=== PATIENT | female | born 1960 | race Caucasian/White ===

== ENCOUNTER 2019-01-15 07:31 | Outpatient (CLI) | payer BC ==
[2019-01-15 08:05] LABS: BASOPHILS % 0.5 % (0.0-1.5); NEUTROPHILS # 6.8 # k/uL (1.4-7.7)
[2019-01-15 08:32] LABS: eGFR (Non-African) > 60
--- NOTE | 2019-01-15 11:15 | Diagnostic Imaging Report ---
DAVID SHEPARD ED [facility] [id number] [facility] [address] [place], [place]. [address] Report Submission Date: Jan 15, 2019 10:58:15 AM CDT Patient Study Name: SELWYN BACK Date: Jan 15, 2019 9:59:35 AM CDT Modality Type: CT\SR Gender: F Description: CT ABD PELVIS W/ CON : 62 Institution: [facility] Physician: DAVID SHEPARD ED Exam: CT abdomen pelvis with contrast. History: Umbilical hernia. Axial images through the abdomen and pelvis after IV infusion of 90 cc Omnipaque is submitted along with sagittal and coronal reformatted images. Calcified granuloma in the medial aspect of the left lower lung field is noted. No hamzah consolidation or effusions in the visualized lower lung green are seen. A small hiatal hernia is noted. No free intraperitoneal air is identified. The gallbladder is distended without stones. The liver, spleen and pancreas are normal attenuation and enhancement. The adrenal glands are normal configuration. The abdominal aorta is of normal caliber. No periaortic lymphadenopathy is identified. Multiple bilateral renal cysts are identified. The largest is seen in the lower pole of the left kidney measuring 2.8 cm. No hydronephrosis is identified. The urinary bladder is contracted. The small bowel is of normal caliber. Air and stool is seen throughout the large intestine. No inflammatory changes in the mesentery or ascites is identified. A small periumbilical hernia contains only fat. No bony abnormalities are identified. Impression: Old granulomatous disease. Small hiatal hernia. Bilateral renal cysts. No hydronephrosis. Nonspecific bowel gas pattern. No inflammatory changes in the mesentery or ascites is identified. Small periumbilical hernia contains only fat. Electronically signed on Jan 15, 2019 10:58:15 AM CDT by: Isai SHELL
== END 2019-01-15 07:33 ==
LOC: RAD 07:31
PROVIDERS: ATTEND Nurse Practitioner Family
DX: Z00.01 Encounter for general adult medical examination with abnormal findings (principal)
CPT/HCPCS: 36415; 74177; 80053; 85025

== ENCOUNTER 2019-01-24 06:29 | Day surgery (SDC) | payer OTHER ==
[2019-01-24] MEDS ORDERED: methylPREDNISolone SOD SUCC 125 MG/2 ML VIAL ONE ×3 (07:21→08:48)
[2019-01-24] MEDS ORDERED: LIDOCAINE HCL 1% PF 300MG/30ML VIAL ONE (08:48)
[2019-01-24] MEDS ORDERED: FAMOTIDINE 20 MG/2 ML VIAL IV ONE (08:48)
[2019-01-24] MEDS ORDERED: ROCURONIUM BROMIDE 10 MG/ML 5ML VIAL ONE (08:48)
[2019-01-24] MEDS ORDERED: ceFAZolin SODIUM 1 GM VIAL ONE (08:48)
[2019-01-24] MEDS ORDERED: SUGAMMADEX SODIUM 200 MG/2 ML VIAL IV ONE (08:48)
[2019-01-24] MEDS ORDERED: MIDAZOLAM HCL 2 MG/2 ML VIAL ONE (08:48)
[2019-01-24] MEDS ORDERED: ONDANSETRON HCL/PF 4 MG/ 2ML VIAL ONE (08:48)
[2019-01-24] MEDS ORDERED: LACTATED RINGERS 1,000 ML IV.SOLN IV ONE ×2 (08:48)
[2019-01-24] MEDS ORDERED: PROPOFOL 200 MG/20 ML VIAL IV ONE (08:48)
[2019-01-24] MEDS ORDERED: PHENYLEPHRINE HCL 10 MG/1 ML ONE (08:48)
[2019-01-24] MEDS ORDERED: DEXAMETHASONE SODIUM PHOSPHATE 10 MG/ML VIAL ONE (08:48)
[2019-01-24] MEDS ORDERED: LIDOCAINE HCL 2% PF 100MG/5ML VIAL IJ ONE (08:48)
[2019-01-24] MEDS ORDERED: BUPIV. HCL 0.25% (2.5MG/ML)/EPI. (1:200,000) PF 10 ML VIAL IM ONE (08:48)
[2019-01-24] MEDS ORDERED: SEVOFLURANE 250 ML LIQUID IH ONE (08:48)
[2019-01-24] MEDS ORDERED: KETOROLAC TROMETHAMINE 30 MG/1ML VIAL ONE (08:48)
[2019-01-24] MEDS ORDERED: GLYCOPYRROLATE 0.2 MG/1 ML 1 ML ONE (08:48)
[2019-01-24] MEDS ORDERED: HYDROcodone /APAP 5/325 1 EACH TABLET ONE (10:59)
--- NOTE | 2019-01-28 15:18 | Operative Note ---
PREOPERATIVE DIAGNOSIS: Ventral hernia. POSTOPERATIVE DIAGNOSIS: Ventral hernia. PROCEDURES PERFORMED: Laparoscopic repair of ventral hernia with mesh. SURGEON: Hardik Nunez M.D. INDICATIONS FOR PROCEDURE: Ms. Rodriguez is a 58-year-old female who presented with features of a bulge in the anterior abdomen near the umbilicus. She has a history of lower abdominal incisions in the past, and it appeared to be through the wall of the incision site. The patient was advised laparoscopic repair of same. DESCRIPTION OF PROCEDURE: After explaining to the patient in detail and informed consent was obtained, the patient was identified in the preoperative holding area. The patient was transferred to the operating room and was placed in supine position. Sequential compressive devices were placed for DVT prophylaxis. Preoperative antibiotics were given. After induction of anesthesia, the abdomen was prepped and draped in a sterile fashion. Through a left upper quadrant 1-cm incision, and using Optiview technique, the peritoneal cavity was entered and pneumoperitoneum was created. Thereafter, under direct vision, a 12-mm trocar was placed in the left flank and another 5-mm trocar was placed in the left lower quadrant. On initial inspection, the patient was noted to have a 3 cm ventral hernia with most of the omentum inside it. This was gently taken down. I then dissected off the sac using hook electrocautery and by blunt dissection. Once the sac was excised, I then approximated the hernial defect using #1 Ethibond suture and using a suture passer. Once this was completed, I then chose a 12-cm Symbotex mesh and a single 2-0 Ethibond suture was placed in the center of the mesh using 2-0 Ethibond suture. The mesh was then introduced into the abdominal cavity and the mesh was then anchored onto the anterior abdomen using the suture passer. The mesh was then tacked circumferentially using Securestrap at 1-cm intervals. Absolute hemostasis was ensured. The abdomen was then deflated, the incisions were closed with 4-0 Monocryl, Dermabond was applied. The patient was stable at the end of the procedure. The patient was awakened from anesthesia and was transferred to the recovery room in stable condition. ESTIMATED BLOOD LOSS: Minimal. CONDITION OF THE PATIENT: Stable. FLUIDS GIVEN: Per Anesthesia note. SPECIMEN(S) SENT: None. COMPLICATIONS: None. ANESTHESIA: General. Hardik Nunez M.D. CLAU/yefri (Please copy [facility] provider when applicable) Job #[id number] SULEMAN
== END 2019-01-24 11:50 | disposition home or self-care (01) ==
LOC: OPSURG 06:29
PROVIDERS: ATTEND Surgery
DX: K43.9 Ventral hernia without obstruction or gangrene (principal)
CPT/HCPCS: 49652; J0690; J1885; J2001; J2250; J2370; J2405; J2704; J2930; J3490; A9270-GY; J7120

== ENCOUNTER 2019-05-02 19:30 | Emergency (ER) | payer BC ==
--- NOTE | 2019-05-02 19:36 | ED Physician Documentation ---
Eye Problem - HISTORIAN Historian: patient - HPI Stated Complaint: right eye drainage and redness since this am Chief Complaint: Eye Problems Onset: hours (12) Associated symptoms: burining, itching, redness, matting. denies: foreign body, decreased vision, blurred vision Location: right eye Severity: mild Apparent Injury: no Where: home Further Comments: yes (per her report she woke this am with drainage. She was thinking this would clear as the day went on but the drainage and redness has only increased. No change in vision.) - ROS CONST: no problems - PAST HX Past History: none Immunizations: UTD Allergies/Adverse Reactions: Allergies Allergy/AdvReac Type Severity Reaction Status Date / Time No Known Drug Allergies Allergy Verified 05/02/19 19:49 Home Medications: Ambulatory Orders Medication Instructions Recorded Hydrochlorothiazide 1 tab PO DAILY 05/02/19 - SOCIAL HX Smoking History: non-smoker Alcohol Use: none Drug Use: none - FAMILY HX Family History: none - REVIEWED ASSESSMENTS Nursing Assessment Reviewed: Yes Vitals Reviewed: Yes Eye Problem Physical Exam - Physical Exam General Appearance: no acute distress, alert Eyelids: erythema (R) Conjunctiva and Sclera: exudate (R) Corneas: nml inspection Pupils: equal Skin: nml color Neck/Back: nml inspection Respiratory: no resp distress CVS: reg rate & rhythm, heart sounds normal Abdomen: non-tender Neuro/Psych: oriented x3 Discharge Clincal Impression: Acute bacterial conjunctivitis of right eye Referrals: Dalia Lyon NP [Primary Care Provider] - 2 Days Comments: 1. Gentamycin - 1 drop in the right eye three times per day x 7 days 2. Keep eye clean with a clean wash cloth 3. Wash your hands after touching your eye 4. See PCP or Eye dr if no improvement in 2 days 5. Return to ER for any increased concerns Condition: Stable Disposition: 01 HOME, SELF-CARE Decision to Admit: NO Date of Decison to Admit: 05/02/19 Decision Time: 19:48
[2019-05-02] MEDS ORDERED: GENTAMICIN SULFATE 0.3% OPTH SOL OP ONE (19:46)
[2019-05-02 20:06] VITALS: BP 132/75
== END 2019-05-02 19:59 | disposition home or self-care (01) ==
LOC: ED 19:30
DX: H10.33 Unspecified acute conjunctivitis, bilateral (principal)
CPT/HCPCS: 99282